=== PATIENT | female | born 1980 | race Caucasian/White ===

== ENCOUNTER 2018-06-09 22:25 | Emergency (ER) | payer BC ==
[2018-06-09 22:42] VITALS: BP 120/75; PULSE 113; RESP 20; TEMP 98.7
--- NOTE | 2018-06-10 12:15 | XR ---
EXAM: XR Chest, 2 Views CLINICAL HISTORY: Muscle spasms in the chest. TECHNIQUE: Frontal and lateral views of the chest. COMPARISON: No relevant prior studies available. FINDINGS: Lungs: Mild obscuration of the left costophrenic sulcus may represent atelectasis or less likely small effusion. The lungs are otherwise clear. Pleural space: Unremarkable. No pneumothorax. Heart: Unremarkable. No cardiomegaly. Mediastinum: Unremarkable. Bones/joints: Moderate scoliosis. Other findings: Portable inspiration. IMPRESSION: Mild obscuration of the left costophrenic sulcus may represent atelectasis or less likely small effusion. This is likely related to the scoliosis.
== END 2018-06-10 04:05 | disposition home or self-care (01) ==
LOC: EC 22:25
DX: R12 Heartburn (principal); Z87.19 Personal history of other diseases of the digestive system
CPT/HCPCS: 71046; 99283